=== PATIENT | male | born 1975 | race Hispanic/Latino ===

== ENCOUNTER 2017-12-23 07:24 | Emergency (ER) | payer OTHER ==
[~2017-12-23] VITALS: Ht 167.6 cm; Wt 64.0 kg
[~2017-12-23 07:24] MED LIST: PERCOCET 5/325M1 TAB PO
[2017-12-23] MEDS ORDERED: FLEXERIL PO ×2 (08:22→09:11)
[2017-12-23] MEDS ORDERED: TORADOL PO ×2 (08:22→09:11)
[2017-12-23 08:35] VITALS: BP 144/92
== END 2017-12-23 08:36 | disposition home or self-care (01) | DRG 563 ==
LOC: ED 07:24
DX: S29.012A Strain of muscle and tendon of back wall of thorax, initial encounter (principal); V63.5XXA Driver of heavy transport vehicle injured in collision with car, pick-up truck or van in traffic accident, initial encounter